=== PATIENT | male | born 1975 | race Asian ===

== ENCOUNTER 2020-07-24 11:17 | Outpatient (CLI) | payer BC ==
--- NOTE | 2020-07-24 12:21 | RAD ---
TWO VIEW CHEST: HISTORY: Nicotine use with a long history of smoking. FINDINGS: Lungs appear clear. No infiltrate. Mild interstitial prominence. Heart and mediastinum unremarkabl e. Osseous structures unremarkable. IMPRESSION: No acute process identified. POS: AH
== END 2020-07-24 11:18 | disposition home or self-care (01) ==
LOC: SCSRAD 11:17
PROVIDERS: ATTEND Family Medicine
DX: F17.200 Nicotine dependence, unspecified, uncomplicated (principal)
CPT/HCPCS: 71046